=== PATIENT | male | born 1965 | race Native Hawaiian/Other Pacific Islander ===

== ENCOUNTER 2017-07-13 11:27 | Observation (INO) | payer BC ==
[~2017-07-13] VITALS: Ht 182.9 cm; Wt 93.2 kg
[2017-07-13 13:15] LABS: PLATELET COUNT 242 K/uL (142-355)
[2017-07-13 13:42] LABS: POTASSIUM 3.4 mmol/L (3.6-5.2)
[2017-07-13] MEDS ORDERED: HYZAAR1 TA2 PO (14:52)
[2017-07-13] MEDS ORDERED: METOPROLOL SUCC1 TA1 PO (14:52)
[2017-07-13] MEDS ORDERED: LIPITOR20 MG PO (14:53)
[2017-07-13 16:00] VITALS: BP 136/90; TEMP 98
[2017-07-13 16:45] VITALS: BP 145/95; TEMP 97.8; Ht 182.9 cm; Wt 93.2 kg
[2017-07-13 20:22] VITALS: BP 140/68; TEMP 98.8
[2017-07-14 00:18] VITALS: BP 145/84; TEMP 97.9
[2017-07-14 05:20] LABS: PLATELET COUNT 212 K/uL (142-355)
[2017-07-14 05:53] VITALS: BP 131/84; TEMP 97.5
[2017-07-14 06:12] LABS: POTASSIUM 3.2 mmol/L (3.6-5.2); SODIUM 139 mmol/L (136-145)
== END 2017-07-14 11:15 | disposition home or self-care (01) ==
LOC: MED/SURG 11:27
PROVIDERS: ADMIT Internal Medicine
DX: R06.02 Shortness of breath (principal); R07.89 Other chest pain; I10 Essential (primary) hypertension; K21.9 Gastro-esophageal reflux disease without esophagitis; E78.4 Other hyperlipidemia; G25.2 Other specified forms of tremor
CPT/HCPCS: 80053; 81000; 82550; 82553; 83615; 83880; 84443; 84484; 85027; 85610; 93005; 94760; 96367; 96374; 99220; G0378; G0379; J3486